=== PATIENT | female | born 1955 | race Caucasian/White ===

== ENCOUNTER 2021-02-26 08:03 | Outpatient (CLI) | payer MEDICARE, MEDICAID, SELFPAY ==
--- NOTE | ~2021-02-26 | US_ITS ---
EXAMINATION: US art doppler w press LE BI DATE: 02/26/2021 08:53 INDICATION: Coronary atherosclerosis. Numbness and tingling at the lower limbs. Hypercholesterolemia and smoking. TECHNIQUE: Segmental pressures and plethysmographic and Doppler waveforms of the brachial and lower e xtremity arteries were obtained. COMPARISON: None. FINDINGS: Right and left brachial artery pressures of 115 mm Hg and 121 mm Hg, respectively, are concordant (no rmal difference <= 30 mmHg). The right and left high-thigh pressure indices are 1.07 and 1.21, respec tively (normal > 1.2). The right ankle-brachial index (RAFAEL) is 1.08 (normal >= 0.9-1). The right great toe-brachial index (T BI) is 0.70 (normal >= 0.6-0.8). The right lower extremity segmental pressure gradients are normal (n ormal gradients <= 20-30 mmHg between adjacent levels on the same leg or the same levels on the two l egs). Arterial waveforms are biphasic with brisk systolic upstrokes throughout the arteries of the ri ght lower limb. The left RAFAEL is 0.96. The left TBI is 0.80. The left lower extremity segmental pressure gradients are normal. Arterial waveforms are biphasic with brisk systolic upstrokes throughout the arteries of the left lower limb. IMPRESSION: 1. Normal RAFAEL's and TBI's bilaterally. No significant occlusive disease. Reviewed, dictated and finalized at [facility]. POLISHER
== END 2021-02-26 08:04 | disposition home or self-care (01) ==
PROVIDERS: PCP Nurse Practitioner Adult Health; Visit Provider Nurse Practitioner Adult Health
DX: I70.213 Atherosclerosis of native arteries of extremities with intermittent claudication, bilateral legs (principal)
CPT/HCPCS: 93923

== ENCOUNTER 2023-07-17 13:37 | Outpatient (CLI) | payer MEDICARE, MEDICAID, SELFPAY ==
--- NOTE | ~2023-07-17 | CT_ITS ---
EXAMINATION:CT lung screening DATE: 07/17/2023 13:55 INDICATION: Personal history of nicotine dependence. Current smoker with 50 pack-year history. TECHNIQUE: Computed tomography (CT) of the chest was performed without intravenous contrast. Automate d exposure control and iterative reconstruction technique were employed. The dose-length product (DLP ) was 115.77 mGy-cm. COMPARISON: None. FINDINGS: There is mild emphysema. There is mild scarring at right lung apex. There is a 2 mm nodule in left upper lobe. The lungs demonstrate mild atelectasis. No pleural effusion. The heart size is no rmal. There are coronary artery calcifications. No pericardial effusion. There is mild atrophy of rig ht kidney. There is moderate thoracic spondylosis. IMPRESSION: 1. Lung-RADS category 2: Benign appearance or behavior. Continue annual screening with noncontrast lo w-dose chest CT in 12 months. Reviewed, dictated and finalized at location [facility]. IMPRESSION: 1. Lung-RADS category 2: Benign appearance or behavior. Continue annual screeni ng with noncontrast low-dose chest CT in 12 months.
== END 2023-07-17 13:38 | disposition home or self-care (01) ==
LOC: ANHIMG 13:41
DX: Z12.2 Encounter for screening for malignant neoplasm of respiratory organs (principal); Z87.891 Personal history of nicotine dependence
CPT/HCPCS: 71271

== ENCOUNTER 2024-03-29 10:13 | Outpatient (CLI) | payer MEDICARE, MEDICAID, SELFPAY ==
[2024-03-29 10:46] LABS: Basophils Absolute Auto 0.1 K/mm3 (0.0-0.1); Basophils Percent Auto 1.2 % (0.2-1.2); Eosinophils Absolute Auto 0.2 K/mm3 (0-0.3); Hematocrit 41.2 % (37.0-47.0); Hemoglobin 13.7 g/dL (12.0-15.0); Immature Granulocyte Absolute 0.02 K/mm3 (0.00-0.031); Immature Granulocyte Percent A 0.3 % (0-0.5); Lymphocytes Absolute Auto 2.57 K/mm3 (0.9-3.2); Lymphocytes Percent Auto 34.1 % (18.3-44.2); Mean Corpuscular HGB Conc 33.3 g/dl (32-36); Mean Corpuscular Hemoglobin 31.6 pg (26-34); Mean Corpuscular Volume 95.2 fl (80-100); Mean Platelet Volume 10.6 fl (7.4-10.4); Monocytes Absolute Auto 0.6 K/mm3 (0.1-0.6); Monocytes Percent Auto 8.2 % (2.6-8.5); Neutrophils Absolute Auto 4.1 K/mm3 (1.3-6.7); Neutrophils Percent Auto 54.2 % (45.5-73.1); Platelet Count Result 325 k/mm3 (150-375); Red Blood Count 4.33 M/mm3 (4.2-5.4); Red Cell Distribution Width 13.1 % (11.5-14.5); White Blood Count 7.5 K/mm3 (4.5-10.0)
[2024-03-29 11:04] LABS: Alanine Aminotransferase 19 U/L (6-35); Albumin Level 4.7 g/dL (3.5-5.1); Alkaline Phosphatase 69 U/L (38-126); Anion Gap 9 mmol/L (4-12); Aspartate Amino Transferase 25 U/L (14-36); Bilirubin,Total 0.5 mg/dL (0.2-1.3); Blood Urea Nitrogen 12 mg/dL (7-17); Calcium 9.8 mg/dL (8.4-10.2); Carbon Dioxide 27 mmol/L (22-30); Chloride 103 mmol/L (98-107); Cholesterol 158 mg/dL (0-200); Estimated Glomerular Filt Rate 40; Glucose 109 mg/dL (65-110); HDL Direct 42 mg/dL; Potassium 4.5 mmol/L (3.4-5.0); Sodium 139 mmol/L (137-145); Triglycerides 182 mg/dL (<150)
--- OUTSIDE RECORDS SUMMARY | 2024-03-29 11:09 | XMS_ITS | Clinical Summary ---
Author Organization [facility] Address [address] [place] [address] Phone Care Team Providers Care School Bus Driver/Custodian Name Role Phone Unavailable Primary Care Provider Unavailabl e Social History Tobacco Use Types Packs/Day Years Used Date Smoking Tobacco: Never Assessed Comments Unknown Sex and Gender Information Value Date Recorded Sex Assigned at Not on file Legal Sex Female 2:31 PM CDT Gender Identity Not on file Sexual Orientation Not on file Plan of Treatment Health Maintenance Due Date Last Done Comments DEXA Bone Density 1955 Hepatitis C Virus (HCV) Screening 1955 TdaP Immunization 1955 Colonoscopy 2000 Colorectal Cancer Screening 2000 Cologuard 2005 Immunochemical Fecal Occult Blood 2005 Mammogram 2005 Pneumococcal Immunization (5 0+ years) (1 of 1 - PCV) 2005 Zoster Immunization (1 of 2) 2005 Influenza Immunization (#1) 2023 SARS-COV-2 Immunization ( - 2023-25 season) 2023 Respiratory Syncytial Virus (RSV) Immunization (Adult) (1 - 1-dose 75+ series) 2030 Hepatitis B Immunization Aged Out No longer eligible based on patient's age to complete this topic Meningococcal Immunization (ACWY) Aged Out No longer eligible based on patient's age to complete this topic Rotavirus Immunization Aged Out No lo nger eligible based on patient's age to complete this topic
--- OUTSIDE RECORDS SUMMARY | 2024-03-29 11:10 | XMS_ITS | CONTINUITY OF CARE DOCUMENT ---
Author Name willie tapia Address Unknown Organization [facility] Address [address] [place] [address] Phone [phone] Care Team Providers Care Alcoholic Counselor Name Role Phone Jacky Alvarez MD Unavailable [phone] Unavailable PROBLEMS Condition Status Date Provider Notes Cardiology examination active Jacky batista MD CAD active Jakcy Alvarez MD Tobacco abuse active Jacky Alvarez MD Shortness of breath active Jacky Devine Leg edema, left active Nellie Engle ENCOUNTERS Date Type Provider Location Encounter Diag nosis - In-person encounter Office Visit Jacky Alvarez MD [facility] Leg edema, left - In-person encounter Office Visit Jacky Alvarez MD [facility] Cardiology examinationCADTobacco abuseShortness of breath VITAL SIGNS Date Observation Value Provider Body Mass Index (Ratio) 32.37 kg/m2 Cora Engle blood pressure, cuff size large Pa ris Sb blood pressure, diastolic 90 mm[Hg] Pa ris Atkins blood pressure, systolic 132 mm[Hg] Par is Sb oxygen saturation, oximetry 96 % Precious Sb respiratory rate E&M 18 /min Precious H zak pulse rate 73 /min Precious Basurto weight E&M 177 [lb_av] Precious Valladaresron height E&M 62 [in_i] Precious Valladaresron Body Mass Index (Ratio) 32.74 kg/m2 Cora Engle blood pressure, diastolic 70 mm[Hg] Li nkLogic blood pressure, systolic 121 mm[Hg] Marguerite kLogbrandi blood pressure, diastolic 70 mm[Hg] Rh onda Marge blood pressure, systolic 121 mm[Hg] Rho taylor Bird oxygen saturation, oximetry 98 % Dilcia Bird pulse rate 63 /min Dilcia Bird blood pressure, resting Yes Nate Mathew height E&M 62 [in_i] Dilcia Bird weight E&M 179 [lb_av] Dilcia Bird respiratory rate E&M 16 /min Dilcia Bird blood pressure, cuff size regular Rh alisa Bird HISTORY OF MEDICATION USE Medication Status Instructions Dates Provider Indications Com ments losartan 100 mg tablet active TK 1 T PO D Dilcia Bird trazodone 50 mg tablet active TK 1/2 TO 1 T PO 2 HOURS BEFORE BEDTIME TOLERABLE Dilcia Bird propranolol 20 mg tablet active TK 1 T PO BID Dilcia Bird amlodipine 10 mg tablet active Dilcia Bird tramadol 50 mg tablet active TAKE 1 TABLET BY MOUTH TWICE DAILY NEEDED Dilcia Bird atorvastatin 20 mg tablet active TAKE 1 TABLET BY MOUTH EVERY DAY Dilcia Bird SOCIAL HISTORY Date Observation Value Provider social history reviewed E&M revi ewed - no changes required Jacky Alvarez MD smoking/tobacco cess ation, patient education and counseling yes Jacky Alvarez MD cigarette use yes Jacky Alvarez MD social history E&M S moking History: P atient currently smokes every day. Jacky Alvarez MD social history reviewed E&M revi ewed - no changes required Jacky Alvarez MD smoking status Current every day smoker R kalina Bird FUNCTIONAL STATUS Date Observation Value Provider HRA, CV Assess/Plan, Angina (inactive) Management Plan continue current therapy Jacky Alvarez MD FAMILY HISTORY Family Member Condition Mother Family History of Di abetes: INSURANCE PROVIDERS Payer name Policy type / Coverage type [place] [employer] Medicaid 3 [id number] [facility] MEDIC[facility] ([facility] COM[facility]TE PPO) Other [id number] TREATMENT PLAN Date Name Performer [id number],S, L kwaku time smoker, CT chest shows evidence of emphysema S he denies any significant SOB today. Jacky Alvarez MD [id number],C,S tress test was normal. EF of 60%. She denies CP. Jacky Alvarez MD [id number],C,C omes in with mild left leg swelling. BP is stable. I recommend she see a financial retirement plan specialist, as her leg pain bothers her more than her leg swelling. Will continue to monitor and will have her f/u as needed if the swelling worsens. Jacky Alvarez MD [id number],S, C urrent smoker. The Patient was reencouraged to stop smoking. Jacky Alvarez MD [id number],C,L kwaku time smoker, CT chest shows evidence of emphysema Jacky Alvarez MD [id number],C,I ncidental finding of extensive coronary artery calcification suggested CAD. Her effort tolerance is reduced b/c of arthritis of the hip, but she becomes SOB with mild effort. Will arrange regadenoson stress test. Jacky Alvarez MD [id number],C,C urrent smoker. The Patient was reencouraged to stop smoking. Jacky Alvarez MD Cardiology: L kwaku time smoker, CT chest shows evidence of emphysema S he denies any significant SOB today. Jacky Alvarez MD Cardiology:Stress te st was normal. EF of 60%. She denies CP. Jacky Alvarez MD Cardiology:Comes in with mild left leg swelling. BP is stable. I recommend she see a financial retirement plan specialist, as her leg pain bothers her more than her leg swelling. Will continue to monitor and will have her f/u as needed if the swelling worsens. Nellie Engle Cardiology: C urrent smoker. The Patient was reencouraged to stop smoking. Jacky Alvarez MD Cardiology:Long time smoker, CT chest shows evidence of emphysema Jacky Alvarez MD Cardiology:Incidenta l finding of extensive coronary artery calcification suggested CAD. Her effort tolerance is reduced b/c of arthritis of the hip, but she becomes SOB with mild effort. Will arrange regadenoson stress test. Jacky Alvarez MD Cardiology:Current s moker. The Patient was reencouraged to stop smoking. Jacky Alvarez MD Date Name Complete Echo Stress Regadenoson HISTORY OF PROCEDURES Procedure Date Procedure Name Provider Procedure Notes S tatus EKG Jacky Alvarez MD complet ed
--- OUTSIDE RECORDS SUMMARY | 2024-03-29 11:10 | XMS_ITS | Data Portability ---
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 Name Role Phone AUSTEN GRANDA Primary Care Provider [phone] Assessment Encounter Date Assessment Date Assessment LastModified by Organization Details LastModified Time 03/26/2024 03/26/2024 Patient would like annual labs to be ordered and completed before annual wellness in June calvin Not available 03/26/2024 12:01:55 Plan of Treatment Reminders Order Date Submit Date Provider Last Modified By Organization Details Last Modified Time Details Appointments Medicare Wellness 30 2024 01:00P DELONTE Blair Not available Not available Not available Lab lipid panel, serum 2023 024 [facility] (Lab), [address] [place], [address], 06/25/2023 10:40:24 glycohemo globin, total, blood [address] (Lab), [address] [place], [address], 07/02/2023 08:18:24 vitamin B12, serum [address] (Lab), [address] [place], [address], 07/02/2023 08:18:24 vitamin D, 25-hydrox y, total, serum [address] (Lab), [address] [place], [address], 07/02/2023 08:18:24 CMP, serum or plasma 2023 024 [facility] (Lab), [address] [place], [address], 06/26/2023 01:35:14 CBC w/ auto diff [address] (Lab), [address] [place], [address], 07/02/2023 08:18:23 TSH, serum or plasma [address] (Lab), [address] [place], [address], 07/02/2023 08:18:23 noninvasi ve colorecta l cancer DNA + occult blood screening , QL, stool 2023 024 [place] [address] [facility] (Cologuard Orders Only), [address], [address], [place], [address], 07/02/2023 08:18:23 hepatitis C Ab, serum [address] (Lab), [address] [place], [address], 07/02/2023 08:18:24 drug of abuse panel, urine - Looking for tramadol 2023 024 [facility] (Lab), [address] [place], [address], 09/17/2023 15:25:43 vitamin D, 25-hydrox y, total, serum 2024 025 [facility] (Lab), [address] [place], [address], 03/26/2024 10:56:02 glycohemo globin, total, blood 2024 025 [facility] (Lab), [address] [place], [address], 03/26/2024 10:56:02 CBC w/ auto diff 2024 025 [facility] (Lab), [address] [place], [address], 03/26/2024 10:56:02 TSH, serum or plasma 2024 025 [facility] (Lab), [address] [place], [address], 03/26/2024 10:56:02 lipid panel, serum 2024 025 [facility] (Lab), [address] [place], [address], 03/26/2024 10:56:02 CMP, serum or plasma 2024 025 [facility] (Lab), [address] [place], [address], 03/26/2024 10:56:02 vitamin B12 + folate, serum or blood 2024 025 [facility] (Lab), [address] [place], [address], 03/26/2024 10:56:02 Referral None recorded. Procedures None recorded. Surgeries None recorded. Imaging LDCT, chest, for lung cancer screening - *Please call pt to schedule* 2023 024 [facility], [address], [address] [address], [place], [address], 07/18/2023 18:25:51 XR, femur, 2 or more view 2023 024 [facility] Not available 12/29/2023 13:02:29 Medication Orders tramadol 50 mg tablet 2023 024 [facility] #54591, [address], [place], [place], [id number], 03/21/2023 15:26:25 cyclobenz aprine 10 mg tablet 2023 024 [facility]04996, [address], [place], [place], [id number], 03/21/2023 16:20:33 promethaz ine-DM 6.25 mg-15 mg/5 mL oral syrup 2023 024 [facility] #73234, [address], [place], [place], [id number], 06/25/2023 09:56:05 amlodipin e 10 mg tablet 2023 024 [facility] #93439, [address], [place], [place], [id number], 03/21/2023 14:00:59 losartan 100 mg tablet 2023 024 [facility] #27782, [address], [place], [place], [id number], 03/21/2023 14:24:32 propranol ol 20 mg tablet 2023 024 [facility] #77161, [address], [place], [place], [id number], 03/21/2023 15:22:05 Ubrelvy 50 mg tablet 2023 024 [facility] #56931, [address], [place], [place], [id number], 06/25/2023 10:39:27 trazodone 100 mg tablet 2023 [facility] #20431, [address], [place], [place], [id number], 09/17/2023 10:57:11 cyclobenz aprine 10 mg tablet 2023 024 [facility] #51321, [address], [place], [place], [id number], 12/25/2023 10:56:21 tramadol 50 mg tablet 2023 024 [facility] #08745, [address], [place], [place], [id number], 12/25/2023 10:56:32 meclizine 25 mg tablet 2023 024 [facility] #15811, [address], [place], [place], [id number], 12/25/2023 10:56:16 atorvasta tin 20 mg tablet 2023 024 [facility] #37025, [address], [place], [place], [id number], 12/25/2023 10:56:17 Ubrelvy 50 mg tablet 2023 024 [facility] #55251, [address], [place], [place], [id number], 12/25/2023 10:56:16 Qulipta 30 mg tablet 2023 024 [facility] #17105, [address], [place], [place], [id number], 03/26/2024 12:03:03 amlodipin e 10 mg tablet 2023 024 [facility]29484, [address], [place], [place], [id number], 12/25/2023 10:56:20 losartan 100 mg tablet 2023 024 [facility] #30325, [address], [place], [place], [id number], 12/25/2023 10:56:18 propranol ol 20 mg tablet 2024 025 [facility]08561, [address], [place], [place], [id number], 03/26/2024 12:03:36 Patient TargetsNo targets recorded. Patient InstructionsNo instructions recorded. Reason for Referral None Reported. Results Created Date Observation Date Name Description Value Unit Range Abnormal Flag Note LastModifiedBy Organization Detail LastModifiedTime 07/04/1907/04/2023 COLOG UARD cologuard result reportable NEGATI VE negati ve normal NEGAT ILIANA TEST RESUL T. A negat iliana Colog uard resul t indic ates a low likel ihood that a color ectal cance r (CRC) or advan dio adeno ma (alexis omato us polyp s with more advan dio pre-m align ant featu res) is prese nt. The chanc e that a perso n with a negat iliana Colog uard test has a color ectal cance r is less than 1 in 1500 (nega tive predi ctive value >99.9 %) or has an advan dio adeno ma is less than 5.3% (nega tive predi ctive value 94.7% ). These data are based on a prosp ectiv e cross -sect ional study of ,00 0 indiv idual s at [place] [facility] risk for color ectal cance r who were scree christian with both Colog uard and colon oscop y. (Ana Rincon et al, N Engl J Med 2014; 370(1 4):12 86-12 97) The joel l value (refe rence range ) for this assay is negat iliana. COLOG UARD RE-SC REENI NG RECOM MENDA TION: Perio dic color ectal cance r scree izaiah is an impor tant part of preve ntive healt hcare for asymp tomat ic indiv idual s at [facility] for color ectal cance r. Follo wing a negat iliana Colog uard resul t, the Ameri can Cance r Socie ty and U.S. Multi -Soci ety Task Force scree izaiah guide lines recom mend a Colog uard re-sc reeni ng inter smitha of 3 years . Refer ences : Ameri can Cance r Socie ty Guide line for Color ectal Cance r Scree izaiah: https ://forrest w.can cer.o rg/ca ncer/ colon -rect al-ca ncer/ detec tion- diagn osis- stagi ng/ac s-rec ommen datio ns.ht ml.; Richie DARLING, Shauna DOMINGUEZ, Je DAO, Color ectal Cance r Scree izaiah: Recom menda tions for Physi cians and Patie nts from the U.S. Multi -Soci ety Task Force on Color ectal Cance r Scree izaiah , Brigido maguire y 2017; 112:1 016-1 030. TEST DESCR IPTIO N: [place] site algor ithmi c marquise sis of stool DNA-b iomar kers with hemog lobin immun oassa y. Quant itati ve value s of indiv idual bioma rkers are not repor table and are not assoc iated with indiv idual bioma rker resul t refer ence range s. Colog uard is inten ded for color ectal cance r scree izaiah of adult s of eithe r sex, 45 years or older , who are at [facility] for color ectal cance r (CRC) . Colog uard has been appro sheila for use by the U.S. FDA. The perfo rmanc e of Colog uard was estab lishe d in a cross secti onal study of [facility] adult s aged 50-84 . Colog uard perfo rmanc e in patie nts ages 45 to 49 years was estim ated by sub-g roup marquise sis of near- age group s. Colon oscop ies perfo rmed for a posit iliana resul t may find as the most clini alie signi fican t lesio n: color ectal cance r [4.0% ], advan dio adeno ma (incl uding sessi le tere tana polyp s great er than or equal to 1cm diame ter) [20%] or non- advan dio adeno ma [31%] ; or no color ectal neopl chacho [45%] . These estim ates are deriv ed from a prosp ectiv e cross -sect ional scree izaiah study of 0 indiv idual s at [facility] risk for color ectal cance r who were scree christian with both Colog uard and colon oscop y. (Ana Rincon et al, N Engl J Med 2014; 370(1 4):12 86-12 97.) Colog uard may produ ce a false negat iliana or false posit iliana resul t (no color ectal cance r or preca ncero us polyp prese nt at colon oscop y follo w up). A negat iliana Colog uard test resul t does not guara ntee the absen ce of CRC or advan dio adeno ma (pre- cance r). The curre nt Colog uard scree izaiah inter smitha is every 3 years . (Amer ican Cance r Socie ty and U.S. Multi -Soci ety Task Force ). Colog uard perfo rmanc e data in a 0 patie nt pivot al study using colon oscop y as the refer ence metho d can be acces sed at the follo wing locat ion: www.e xactl abs.c om/re wesley . Addit ional descr iptio n of the Colog uard test proce ss, warni ngs and preca ution s can be found at www.c yamilka rinaldid.c om. Not Available [facility] [facility] (Cologuard Orders Only) [address], [place], [address], 07/15/2023 01:29:08 07/18/19 24 07/17/2023 LDCT, chest , for lung cance r payton bliss No observ ation record ed. [facility] [address], [place], [address], 07/21/2023 09:44:19 12/29/19 24 12/29/2023 XR, femur , 2 or more view No observ ation record ed. [facility] [address] [facility], [place], [address], 12/30/2023 12:44:54 Result Notes None recorded. Problems Name Problem SNOMED Code Status Onset Date Resolution Date Notes Provider Name and Address Organization Details Recorded Time Pain of left hip joint 06198733198 9100 Active 2020 Not Available [facility] 4 01:43:49 Pain in right hip joint 83829278233 9102 Active 2020 Not Available [facility] 4 01:43:49 Left side sciatica 63620389387 9104 Active 2010 Not Available [facility] 4 01:43:49 Coronary atheroscl erosis 697384044 Active 2020 Not Available [facility] 4 01:43:49 Hyperlipi demia 62489273 Active 2009 Not Available [facility] 4 01:43:49 Essential hypertens ion 88439707 Active 2004 Not Available [facility] 4 01:43:50 Chronic kidney disease 943815025 Active 2018 Not Available [facility] 4 01:43:50 Prediabet es 843287787 Active 2020 Not Available [facility] 4 01:43:50 Spinal stenosis 61152293 Active 2020 Not Available [facility] 4 01:43:50 Smoker 36337337 Active 2020 Not Available [facility] 4 01:43:50 Pulmonary emphysema 96304461 Active 2020 Not Available [facility] 4 01:43:50 Lesion of skin of face 21925421426 6 Completed 202206/25/2023 DELONTE Osuna [address], [address], [place], [address] , iodine [facility] 4 10:26:39 Chronic low back pain 719599060 Active 2022 Not Available [facility] 4 01:43:49 Persisten t insomnia 316554296 Active 2022 Not Available [facility] 4 01:43:49 Cough 64377320 Completed 202306/25/2023 DELONTE Osuna [address], [address], [place], [address] , iodine [facility] 4 10:26:21 Migraine 08457094 Active 2023 KAILEY Meade [address], [address], [place], [address] , iodine [facility] 4 10:31:14 Hyperchol esterolem ia 14531746 Active 2023 DELONTE Osuna [address], [address], [place], [address] , [employer] [facility] 4 10:37:02 Fatigue 29234691 Active 2023 DELONTE Osuna [address], [address], [place], [address] , [employer] [facility] 4 10:38:05 Vitamin D deficienc y 25158776 Active 2023 DELONTE Osuna [address], [address], [place], [address] , iodine [facility] 4 08:35:50 Benign paroxysma l positiona l vertigo 698905717 Active 2023 DELONTE Osuna [address], [address], [place], [address] , [employer] 4 10:38:30 Pain in femur 996398786 Active 2023 DELONTE Osuna [address], [address], [place], [address] , [place] [facility] [employer] 4 10:49:51 Closed fracture of neck of femur 870614511 Active 2023 DELONTE Osuna [address], [address], [place], [address] , [employer] 4 12:45:51 Closed fracture of neck of femur 372512174 Active 2023 DELONTE Osuna [address], [address], [place], [address] , [employer] 4 12:45:52 Verruca vulgaris 15923425 Active 2024 DELONTE Osuna [address], [address], [place], [address] , [employer] 5 10:57:11 Notes:Some problems listed i n Documents: #[id number], #[id number], #[id number], #[id number], #[id number], #[id number], #[id number] could not be added to this patient's chart. Please review these documents and add these problems to the patient's chart manually as needed. Problem Notes None recorded. Procedures Surgical History Date Name Laterality Status Provider Name and Address Organization Details Recorded Time 03/26/19 25 Cryosurgery Warts/Skin Tags completed DELONTE Osuna [address], [address], [place], [address], [employer] 03/26/2024 11:04:19 Tubal Ligation completed Not Available [facility] 05/01/2022 00:41:20 other completed Not Available [employer] 03/2022 00:41:20 Imaging Results Imaging Date Name Status LastModified by Organiz ation Details LastModified Time 07/17/2023 LDCT, chest, for lung cancer screening [facility] [address] [facility] [address], [place], [address], 07/21/2023 09:44:19 12/29/2023 XR, femur, 2 or more view completed [facility] [address] [place], [address], 12/30/2023 12:44:54 Procedure Notes None recorded. Medical Equipment None Reported. Allergies No known drug allergies Medications Name Sig Start Date Stop Date Status Note LastModified by Organization Details LastModified Time cyclobenzap rine 10 mg tablet TAKE 1 TABLET BY MOUTH THREE TIMES DAILY active Not Available Not Available No t Available promethazin e-DM 6.25 mg-15 mg/5 mL oral syrup Take 5 mL every 4 hours by oral route as needed for 10 days. 06/24 completed Not Available Not Available Not Available prednisone 10 mg tablet TAKE 1 TABLET BY MOUTH TWICE DAILY FOR 10 DAYS 03/26 completed Not Available Not Available Not Available atorvastati n 20 mg tablet TAKE 1 TABLET BY MOUTH EVERY DAY active Not Available Not Available No t Available trazodone 50 mg tablet TAKE 1 TABLET BY MOUTH EVERY DAY active Not Available Not Available No t Available sumatriptan 100 mg tablet TAKE 1 TABLET BY MOUTH EVERY DAY FOR 9 DAYS NEEDED 09/16 completed Not Available Not Available Not Available tramadol 50 mg tablet TAKE 1 TABLET BY MOUTH THREE TIMES DAILY active Not Available Not Available No t Available meloxicam 7.5 mg tablet Take 1 tablet twice a day by oral route as needed. active Not Available Not Available No t Available alprazolam 0.5 mg tablet TAKE 1 TABLET BY MOUTH 1 HOUR PRIOR TO PROCEDURE . 1 TABLET 30 MINUTES PRIOR TO PROCEDURE AND 1 TABLET BY MOUTH ON ARRIVAL TO OFFICE NEEDED 10/24 completed Not Available Not Available Not Available trazodone 100 mg tablet TAKE 1 TABLET BY MOUTH TWICE DAILY active Not Available Not Available No t Available meclizine 25 mg tablet TAKE 1 TABLET BY MOUTH TWICE DAILY NEEDED active Not Available Not Available No t Available amlodipine 10 mg tablet TAKE 1 TABLET BY MOUTH EVERY DAY active Not Available Not Available No t Available cephalexin 500 mg capsule TAKE 1 CAPSULE BY MOUTH TWICE DAILY FOR 7 DAYS 09/18 completed Not Available Not Available Not Available gabapentin 300 mg capsule TK 1 C PO QD HS active Not Available Not Available No t Available pravastatin 20 mg tablet TAKE 1 TABLET BY MOUTH AT DINNER active Not Available Not Available No t Available ergocalcife rol (vitamin D2) 1,250 mcg (50,000 unit) capsule TAKE 1 CAPSULE BY MOUTH EVERY WEEK FOR 56 DAYS DIRECTED 09/16 completed Not Available Not Available Not Available methylpredn isolone 4 mg tablets in a dose pack FOLLOW PACKAGE DIRECTION S 06/24 completed Not Available Not Available Not Available propranolol 20 mg tablet TAKE 1 TABLET BY MOUTH TWICE DAILY 2024 active Not Available Not Available Not Avai lable lisinopril 40 mg tablet TK 1 T PO QD active Not Available Not Available No t Available losartan 100 mg tablet TAKE 1 TABLET BY MOUTH EVERY DAY active Not Available Not Available No t Available fluticasone propionate 50 mcg/actuati on nasal spray,suspe nsion SHAKE LIQUID AND USE 1 SPRAY IN EACH NOSTRIL EVERY DAY NEEDED 10/24 completed Not Available Not Available Not Available duloxetine 20 mg capsule,del ayed release 07/25 completed Not Available Not Available Not Available pregabalin 50 mg capsule Take 1 capsule twice a day by oral route. 10/24 completed Not Available Not Available Not Available pregabalin 75 mg capsule 10/24 completed Not Available Not Available Not Available Ubrelvy 50 mg tablet TAKE 1 TABLET BY MOUTH TWICE DAILY NEEDED FOR MIGRAINES active Not Available Not Available No t Available Qulipta 30 mg tablet Take 1 tablet every day by oral route as directed for 90 days. 03/26 completed Not Available Not Available Not Available Vitals Date Recorded Body height Body mass index (BMI) Body weight Body temperature Heart rate Oxygen saturation Oxygen saturation in Arterial blood by Pulse oximetry Systolic blood pressure Diastolic blood pressure Provider Name and Address Organization Details Last Updated DateTime 4 157.48 cm 30 kg/m2 71871.1 5 g 97.2 [degF] 85 /min 96 % 96 % 134 mm[Hg] 84 mm[Hg] Annabella Chacko [place] [employer] 4 11:04:02 Date Recorded Body height Body mass index (BMI) Body weight Heart rate Respiratory rate Oxygen saturation Oxygen saturation in Arterial blood by Pulse oximetry Body temperature Systolic blood pressure Diastolic blood pressure Provider Name and Address Organization Details Last Updated DateTime 4 157.48 cm 30.8 kg/m2 99080.9 7 g 87 /min 20 /min 97 % 97 % 96.8 [degF] 128 mm[Hg] 70 mm[Hg] ANNA Gagnon [facility] [employer] [facility] 4 09:59:21 Date Recorded Body height Body mass index (BMI) Body weight Body temperature Heart rate Respiratory rate Oxygen saturation Oxygen saturation in Arterial blood by Pulse oximetry Systolic blood pressure Diastolic blood pressure Provider Name and Address Organization Details Last Updated DateTime 4 157.48 cm 31 kg/m2 43932.9 1 g 97.9 [degF] 81 /min 20 /min 98 % 98 % 150 mm[Hg] 92 mm[Hg] ANNA Gagnon [facility] [employer] [facility] 4 10:22:08 Date Recorded Body height Body mass index (BMI) Body weight Body temperature Heart rate Respiratory rate Oxygen saturation Oxygen saturation in Arterial blood by Pulse oximetry Systolic blood pressure Diastolic blood pressure Provider Name and Address Organization Details Last Updated DateTime 4 157.48 cm 30.2 kg/m2 44000.4 9 g 97.2 [degF] 94 /min 20 /min 98 % 98 % 130 mm[Hg] 86 mm[Hg] ANNA Gagnon [facility] [employer] [facility] 4 10:29:18 Date Recorded Body height Body mass index (BMI) Body weight Body temperature Heart rate Respiratory rate Oxygen saturation Oxygen saturation in Arterial blood by Pulse oximetry Systolic blood pressure Diastolic blood pressure Provider Name and Address Organization Details Last Updated DateTime 5 157.48 cm 29.7 kg/m2 99345.3 6 g 97.3 [degF] 88 /min 20 /min 96 % 96 % 144 mm[Hg] 100 mm[Hg] ANNA Gagnon [facility] [employer] [facility] 5 10:41:50 Social History Question Answer Notes LastModified by Organization Details LastModified Time Tobacco Smoking Status Current Every Day Smoker trying to quit Amarilys Strauss RN null, [place] - [facility] 06/25/2023 10:00:57 Do You Have An Advance Directive? No Information not available 06/25/2023 What Is Your Level Of Alcohol Consumption? None [id number] Information not available 05/01/2022 Are You Blind Or Do You Have Difficulty Seeing? Yes Glasses Information not available 06/25/2023 Is Blood Transfusion Acceptable In An Emergency? Yes Information not available 06/25/2023 What Is Your Level Of Caffeine Consumption? Occasional Coffee Information not available 06/25/2023 What Is Your Code Status? DNR Information not available 06/25/2023 In The 14 Days Before Symptom Onset, Have You Had Close Contact With A Laboratory-conf irmed COVID-19 While That Case Was Ill? No [email or web address] Information not available 06/19/2022 In The 14 Days Before Symptom Onset, Have You Had Close Contact With A Person Who Is Under Investigation For COVID-19 While That Person Was Ill? No [email or web address] Information not available 06/19/2022 Are You Currently Employed? No Information not available 06/25/2023 Are You Deaf Or Do You Have Serious Difficulty Hearing? Yes SlFrancisco Coronado Information not available 06/25/2023 What Type Of Diet Are You Following? [id number] [id number] Information not available 05/01/2022 Do You Or Have You Ever Used E-cigarettes Or Vape? Current User Of Electronic Cigarettes Information not available 06/25/2023 Have There Been Any Changes To Your Family Or Social Situation? No Information not available 06/25/2023 Are There Any Guns Present In Your Home? Yes Information not available 06/25/2023 Do You Use Insect Repellent Routinely? No Information not available 06/25/2023 Where Do You Live? SingleLevelHouse Information not available 06/25/2023 Do You Have A Medical Power Of Radiocommunications Technician? No Information not available 06/25/2023 Do You Have Any Pets? Yes Information not available 06/25/2023 What Is Your Relationship Status? Single Information not available 06/25/2023 Do You Use Your Seat Belt Or Car Seat Routinely? Yes Information not available 06/25/2023 Do You Have Smoke And Carbon Monoxide Detectors In Your Home? Yes Information not available 06/25/2023 At What Age Did You Start Smoking Tobacco? 17 Information not available 06/19/2022 Are You Passively Exposed To Smoke? Yes Information not available 06/25/2023 Are There Any Smokers In Your House? Yes Information not available 06/25/2023 How Much Tobacco Do You Smoke? No 5 Cigerettes Per Day Information not available 06/25/2023 Do You Participate In Social Media? No Information not available 06/25/2023 Do You Feel Stressed (tense, Restless, Nervous, Or Anxious, Or Unable To Sleep At Night)? [id number] Information not available 06/25/2023 Do You Use Any Illicit Or Recreational Drugs? No Information not available 06/19/2022 Do You Use Sunscreen Routinely? No Information not available 06/25/2023 Have You Recently Traveled Abroad? No Information not available 06/25/2023 Do You Or Have You Ever Used Any Other Forms Of Tobacco Or Nicotine? Yes Information not available 06/25/2023 How Many Years Have You Used E-cigarettes Or Vape? .2 Information not available 06/25/2023 Sex: Unknown Functional Status Question Answer Note LastModified by Organizat ion Details LastModified Time Do you have difficulty walking or climbing stairs? Yes cane Information not available 06/25/2023 Do you have transportation difficulties? No Information not available 06/25/2023 Are you able to walk? YESASSIST Information not available 06/25/2023 Do you have difficulty doing errands alone? Yes Information not available 06/25/2023 Are you able to care for yourself? Yes daughter helps Information not available 06/25/2023 Do you have difficulty dressing or bathing? Yes Information not available 06/25/2023 What is your exercise level? None [id number] Information not available 05/01/2022 Mental Status Question Answer Note LastModified by Organization D etails LastModified Time Do you have difficulty concentrating, remembering or making decisions? Yes Information no t available 06/25/2023 Family History Relationship Description Onset Age of this Age Resolved Age Notes LastModified by Organization Details LastModified Time Father No current problems or disability [id number] Not available 05/01/2022 00:41:20 Mother No current problems or disability [id number] Not available 05/01/2022 00:41:20 Notes:HTN, Cancer, DM, Crohn s, Heart Disease, Bi-Polar, anxiety Medical History Condition Response BLINDNESS N BLADDER PROBLEMS N SLEEP APNEA N ALLERGIES/HAYFEVER N OTHER # 1 N INFECTIOUS DISEASE N LUNG DISEASE/DISORDER N HEART ARRHYTHMIA N INSOMNIA N RADIATION / CHEMOTHERAPY N COPD N HIGH CHOLESTEROL / HYPERLIPIDEMIA Y Other # 2 N HYPERTHYROIDISM N NEUROLOGICAL PROBLEMS N BLOOD DISEASES N SURGERY N EDEMA N CHRONIC PAIN SYNDROME N EAR OR HEARING PROBLEMS N HYPOTHYROIDISM N DEPRESSION (INCLUDING POST ) N BACK / NECK PROBLEMS Y HAVE YOU BEEN HOSPITALIZED OR SEEN IN [facility] IN THE PAST YEAR ? N STROKE/TIA N ULCERS N BENIGN PROSTATIC HYPERPLASIA N BREAST PROBLEMS N MYOCARDIAL INFARCTION N OBESITY N GERD/NAUSEA N ANEURYSM N INPATIENT PSYCH CARE N CORONARY ARTERY DISEASE (CAD) N USE OF BLOOD THINNERS N NO SIGNIFICANT PAST MEDICAL HISTORY N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
[2024-03-29 11:15] LABS: LDL Cholesterol Direct 74 mg/dL
[2024-03-29 11:37] LABS: Hemoglobin A1C 6.2 % (<5.7)
[2024-03-29 12:08] LABS: Folic Acid 5.5 ng/mL (2.76->20)
[2024-03-29 12:10] LABS: Vitamin D 25 Hydroxy 40.4 ng/mL
== END 2024-03-29 10:14 | disposition home or self-care (01) ==
DX: E78.5 Hyperlipidemia, unspecified (principal); I10 Essential (primary) hypertension; R73.03 Prediabetes; E55.9 Vitamin D deficiency, unspecified; R53.83 Other fatigue
CPT/HCPCS: 36415; 80053; 80061; 82306; 82607; 82746; 83036; 84443; 85025